=== PATIENT | female | born 1965 | race Caucasian/White ===

== ENCOUNTER 2018-07-17 07:52 | Inpatient (IN) | payer OTHER ==
[~2018-07-17 07:52] MED LIST: SUCCINYLCHOLINE CHLORIDE 100 MG/5 ML SYG IV
[2018-07-17 08:36] LABS: ADD MAN DIFF? NO
[2018-07-17 08:40] LABS: BASOPHIL # 0.1 10^3/ul (0.0-0.1); BASOPHILS % 1.2 % (0.0-2.0); EOSINOPHILS # 0.3 10^3/ul (0.0-0.5); EOSINOPHILS % 4.3 % (0.0-7.0); HEMATOCRIT 39.9 % (37.0-47.0); HEMOGLOBIN 12.9 g/dl (12.0-16.0); LYMPHOCYTES # 2.2 10^3/ul (0.8-2.9); LYMPHOCYTES % 37.8 % (15.0-51.0); MEAN CORPUSCULAR HEMOGLOBIN 29.4 pg (29.0-33.0); MEAN CORPUSCULAR HGB CONC 32.3 g/dl (32.0-37.0); MEAN CORPUSCULAR VOLUME 90.9 fl (82.0-101.0); MEAN PLATELET VOLUME 9.7 fl (7.4-10.4); MONOCYTE # 0.6 10^3/ul (0.3-0.9); MONOCYTES % 9.4 % (0.0-11.0); NEUTROPHIL # 2.8 10^3/ul (1.6-7.5); PLATELET COUNT 327 10^3/UL (140-415); RED BLOOD COUNT 4.39 10^6/ul (4.20-5.40); RED CELL DISTRIBUTION WIDTH 12.5 % (11.5-14.5)
[2018-07-17 08:40] LABS: WHITE BLOOD COUNT 5.9 10^3/ul (4.8-10.8)
[2018-07-17] MEDS: SOD CHLORIDE 0.9% 1,000 ML IV (08:48)
[2018-07-17] MEDS ORDERED: GLYCOPYRROLATE 0.4 MG INJ (08:56)
[2018-07-17] MEDS ORDERED: LIDOCAINE 2% (SDV) 5 ML INJ (08:56)
[2018-07-17] MEDS ORDERED: ROCURONIUM 50 MG INJ (08:56)
[2018-07-17] MEDS ORDERED: NEOSTIGMINE 3 MG/3 ML SYRINGE (08:56)
[2018-07-17] MEDS ORDERED: PROPOFOL 20 ML (08:56)
[2018-07-17] MEDS ORDERED: FENTAnyl 50 MCG/ML VIAL ×3 (08:57→12:49)
[2018-07-17] MEDS ORDERED: MIDAZOLAM 1 MG/ML 2 ML INJ (08:57)
[2018-07-17] MEDS: LORAZEPAM 2 MG INJ IV (08:58)
[2018-07-17] MEDS ORDERED: ONDANSETRON 4 MG INJ ×2 (08:58→12:53)
[2018-07-17] MEDS ORDERED: DEXAMETHASONE 4 MG/ML 5 ML INJ (08:58)
[2018-07-17 08:59] LABS: INR 0.81; PARTIAL THROMBOPLASTIN TIME 33.8 Sec (23.0-35.0); PROTIME 11.3 Sec (11.9-14.9); PT RATIO 0.9
[2018-07-17 09:04] LABS: ALANINE AMINOTRANSFERASE 18 IU/L (13-69); ALBUMIN 4.2 g/dl (3.3-4.9); ALKALINE PHOSPHATASE 69 IU/L (42-121); ANION GAP 11 (5-13); ASPARTATE AMINO TRANSFERASE 19 IU/L (15-46); BILIRUBIN,INDIRECT 0.1 mg/dl (0-1.1); BILIRUBIN,TOTAL 0.1 mg/dl (0.2-1.3); CALCIUM 9.6 mg/dl (8.4-10.2); CARBON DIOXIDE 25 mmol/L (21-31); CHLORIDE 107 mmol/L (97-110); CREATININE 0.74 mg/dl (0.44-1.00); Estimated GFR > 60 mL/min (>60); GLUCOSE 101 mg/dl (70-220); POTASSIUM 4.1 mmol/L (3.5-5.1); SODIUM 143 mmol/L (135-144); TOTAL PROTEIN 7.2 g/dl (6.1-8.1)
[2018-07-17 09:08] LABS: BLOOD UREA NITROGEN 23 mg/dl (7-20)
[2018-07-17] MEDS: CEFAZOLIN 1 GM/50 ML (PMX) 50 ML IVPB (10:08)
[2018-07-17] MEDS ORDERED: PHENYLephrine 10 MG INJ (11:15)
[2018-07-17] MEDS ORDERED: HYDROmorphONE 1 MG/5 ML IV SYRINGE IV ×4 (12:53→13:49)
[2018-07-17] MEDS ORDERED: MEPERIDINE 25 MG INJ (12:53)
[2018-07-17] MEDS ORDERED: HALOPERIDOL 5 MG INJ IV (13:00)
[2018-07-17] MEDS ORDERED: ALBUMIN HUMAN 5% 250 ML IV (13:00)
[2018-07-17] MEDS ORDERED: EPHEDrine SULFATE 50 MG/5 ML SYG IV (13:00)
[2018-07-17] MEDS ORDERED: morphine (1 MG/ML) 10ML SYRINGE IV ×2 (13:00)
[2018-07-17] MEDS ORDERED: FENTAnyl 50 MCG/ML VIAL IV ×2 (13:00)
[2018-07-17] MEDS ORDERED: MIDAZOLAM 1 MG/ML 2 ML INJ IV (13:00)
[2018-07-17] MEDS ORDERED: morphine 2 MG INJ IV (13:00)
[2018-07-17] MEDS ORDERED: RACEPINEPHRINE 2.25%(NEB) 0.5 ML AMP HHN (13:00)
[2018-07-17] MEDS ORDERED: ALBUTEROL 0.083% (NEB) 2.5 MG/3 ML AMP HHN (13:00)
[2018-07-17] MEDS ORDERED: PROCHLORPERAZINE 10 MG INJ IV (13:00)
[2018-07-17] MEDS ORDERED: hydrALAzine 20 MG INJ IV (13:00)
[2018-07-17] MEDS ORDERED: DIPHENHYDRAMINE 50 MG INJ (13:49)
[2018-07-17] MEDS: FENTAnyl 50 MCG/ML VIAL IV (14:14)
[2018-07-17] MEDS: MEPERIDINE 25 MG INJ IV (14:14)
[2018-07-17] MEDS: HYDROmorphONE 1 MG/5 ML IV SYRINGE IV (14:14)
[2018-07-17] MEDS: DIPHENHYDRAMINE 50 MG INJ IV (14:15)
[2018-07-17] MEDS: ONDANSETRON 4 MG INJ IV ×2 (14:15→18:59)
[2018-07-17] MEDS ORDERED: METOPROLOL 5 MG INJ IV (15:30)
[2018-07-17] MEDS: D5W-0.45 NACL + KCL 20 MEQ 1,000 ML IV ×2 (15:35→19:00)
[2018-07-17] MEDS: SOD CHLORIDE 0.9% 500 ML IV (18:16)
[2018-07-17] MEDS: LORAZEPAM 1 MG TAB PO (18:19)
[2018-07-17] MEDS: morphine SULFATE/PF (2 MG/2 ML) SYG IV ×2 (20:41→22:01)
[2018-07-17] MEDS: ACETAMINOPHEN 1000MG/100ML IV 100 ML IVPB (20:42)
[2018-07-18] MEDS: morphine SULFATE/PF (2 MG/2 ML) SYG IV ×7 (00:25→12:32)
[2018-07-18] MEDS: LORAZEPAM 1 MG TAB PO ×3 (02:57→19:49)
[2018-07-18] MEDS: ONDANSETRON 4 MG INJ IV ×3 (02:58→20:18)
[2018-07-18] MEDS: ACETAMINOPHEN 1000MG/100ML IV 100 ML IVPB (03:00)
[2018-07-18] MEDS: D5W-0.45 NACL + KCL 20 MEQ 1,000 ML IV ×3 (03:01→19:00)
[2018-07-18] MEDS: HYDROCODONE/APAP (10/325) TAB PO ×3 (14:00→22:28)
[2018-07-18 14:25] LABS: ABNORMAL IP MESSAGE 1; MEAN CORPUSCULAR HEMOGLOBIN 30.7 pg (29.0-33.0); MEAN CORPUSCULAR HGB CONC 32.1 g/dl (32.0-37.0); MEAN CORPUSCULAR VOLUME 95.5 fl (82.0-101.0); MEAN PLATELET VOLUME 10.1 fl (7.4-10.4); PLATELET COUNT 203 10^3/UL (140-415); RED BLOOD COUNT 1.99 10^6/ul (4.20-5.40); RED CELL DISTRIBUTION WIDTH 13.4 % (11.5-14.5)
[2018-07-18 14:25] LABS: WHITE BLOOD COUNT 7.5 10^3/ul (4.8-10.8)
[2018-07-18 14:39] LABS: HEMOGLOBIN 6.1 g/dl (12.0-16.0); POSITIVE DIFF @See below
[2018-07-18 14:43] LABS: ADD MAN DIFF? YES
[2018-07-18 14:46] LABS: INR 1.06; PROTIME 13.9 Sec (11.9-14.9); PT RATIO 1.1
[2018-07-18 14:47] LABS: PARTIAL THROMBOPLASTIN TIME 31.5 Sec (23.0-35.0)
[2018-07-18 15:41] LABS: ANISOCYTOSIS 2+ (0-0); BAND NEUTROPHILS #M 0.1 10^3/ul (0.0-0.6); BAND NEUTROPHILS % (M) 2 % (0-4); BASOPHILS % (M) 1 % (0-2); EOSINOPHILS % (M) 1 % (0-7); GIANT THROMBO% (M) 3 % (0-0); LYMPHOCYTES #M 2.1 10^3/ul (0.8-2.9); LYMPHOCYTES % (M) 28 % (15-51); MICROCYTOSIS 2+ (0-0); MONOCYTE #M 0.1 10^3/ul (0.3-0.9); MONOCYTES % (M) 2 % (0-11); PLATELET ESTIMATE NORMAL; SEGMENTED NEUTROPHILS (M) % 66 % (39-77); SMUDGE%M 5 % (0-0)
[2018-07-18] MEDS: morphine 4 MG/ML VIAL IV ×2 (16:31→20:19)
[2018-07-18] MEDS: ZOLPIDEM 5 MG TAB PO ×2 (20:19→22:34)
[2018-07-18] MEDS ORDERED: DIPHENHYDRAMINE 25 MG CAP (20:44)
[2018-07-18] MEDS: DIPHENHYDRAMINE 25 MG CAP PO (21:09)
[2018-07-19] MEDS: morphine 4 MG/ML VIAL IV ×5 (00:37→21:36)
[2018-07-19] MEDS: DIPHENHYDRAMINE 25 MG CAP PO ×2 (02:40→11:13)
[2018-07-19] MEDS: HYDROCODONE/APAP (10/325) TAB PO ×5 (02:40→23:36)
[2018-07-19] MEDS: D5W-0.45 NACL + KCL 20 MEQ 1,000 ML IV ×3 (03:00→17:18)
[2018-07-19] MEDS: LORAZEPAM 1 MG TAB PO ×3 (04:59→23:33)
[2018-07-19 07:39] LABS: ADD MAN DIFF? NO
[2018-07-19 07:44] LABS: BASOPHIL # 0.1 10^3/ul (0.0-0.1); BASOPHILS % 0.9 % (0.0-2.0); EOSINOPHILS # 0.3 10^3/ul (0.0-0.5); EOSINOPHILS % 3.5 % (0.0-7.0); HEMATOCRIT 25.6 % (37.0-47.0); HEMOGLOBIN 8.2 g/dl (12.0-16.0); LYMPHOCYTES # 2.8 10^3/ul (0.8-2.9); MEAN CORPUSCULAR HEMOGLOBIN 29.5 pg (29.0-33.0); MEAN CORPUSCULAR VOLUME 92.1 fl (82.0-101.0); MEAN PLATELET VOLUME 9.8 fl (7.4-10.4); MONOCYTE # 0.7 10^3/ul (0.3-0.9); MONOCYTES % 9.5 % (0.0-11.0); NEUTROPHIL # 3.8 10^3/ul (1.6-7.5); NEUTROPHILS % 49.6 % (39.0-77.0); PLATELET COUNT 177 10^3/UL (140-415); RED BLOOD COUNT 2.78 10^6/ul (4.20-5.40); RED CELL DISTRIBUTION WIDTH 14.3 % (11.5-14.5)
[2018-07-19 07:44] LABS: WHITE BLOOD COUNT 7.8 10^3/ul (4.8-10.8)
[2018-07-19 08:08] LABS: ANION GAP 4 (5-13); BLOOD UREA NITROGEN 14 mg/dl (7-20); CARBON DIOXIDE 24 mmol/L (21-31); CHLORIDE 107 mmol/L (97-110); CREATININE 0.72 mg/dl (0.44-1.00); Estimated GFR > 60 mL/min (>60); GLUCOSE 95 mg/dl (70-220); POTASSIUM 4.1 mmol/L (3.5-5.1); SODIUM 135 mmol/L (135-144)
[2018-07-19] MEDS: ONDANSETRON 4 MG INJ IV (11:18)
[2018-07-19 15:02] LABS: HEMATOCRIT 23.7 % (37.0-47.0); HEMOGLOBIN 7.7 g/dl (12.0-16.0)
[2018-07-19] MEDS: ZOLPIDEM 5 MG TAB PO ×2 (21:06→22:23)
[2018-07-19 21:39] LABS: IMMEDIATE SPIN CROSSMATCH 1 6
[2018-07-20] MEDS: DIPHENHYDRAMINE 25 MG CAP PO (01:37)
[2018-07-20] MEDS: morphine 4 MG/ML VIAL IV ×4 (02:03→21:31)
[2018-07-20] MEDS: D5W-0.45 NACL + KCL 20 MEQ 1,000 ML IV ×4 (03:00→19:31)
[2018-07-20] MEDS: LORAZEPAM 2 MG INJ IV ×2 (04:31→14:20)
[2018-07-20 05:10] LABS: ADD MAN DIFF? NO
[2018-07-20 05:16] LABS: WHITE BLOOD COUNT 8.4 10^3/ul (4.8-10.8)
[2018-07-20 05:16] LABS: BASOPHIL # 0.1 10^3/ul (0.0-0.1); BASOPHILS % 0.6 % (0.0-2.0); EOSINOPHILS # 0.4 10^3/ul (0.0-0.5); EOSINOPHILS % 4.9 % (0.0-7.0); HEMATOCRIT 27.2 % (37.0-47.0); HEMOGLOBIN 8.9 g/dl (12.0-16.0); LYMPHOCYTES # 2.7 10^3/ul (0.8-2.9); LYMPHOCYTES % 31.4 % (15.0-51.0); MEAN CORPUSCULAR HEMOGLOBIN 30.2 pg (29.0-33.0); MEAN CORPUSCULAR HGB CONC 32.7 g/dl (32.0-37.0); MEAN CORPUSCULAR VOLUME 92.2 fl (82.0-101.0); MEAN PLATELET VOLUME 9.9 fl (7.4-10.4); MONOCYTE # 0.7 10^3/ul (0.3-0.9); MONOCYTES % 8.2 % (0.0-11.0); NEUTROPHIL # 4.6 10^3/ul (1.6-7.5); NEUTROPHILS % 54.2 % (39.0-77.0); PLATELET COUNT 189 10^3/UL (140-415); RED BLOOD COUNT 2.95 10^6/ul (4.20-5.40); RED CELL DISTRIBUTION WIDTH 14.2 % (11.5-14.5)
[2018-07-20 05:53] LABS: ANION GAP 5 (5-13); BLOOD UREA NITROGEN 10 mg/dl (7-20); CALCIUM 8.4 mg/dl (8.4-10.2); CARBON DIOXIDE 26 mmol/L (21-31); CHLORIDE 104 mmol/L (97-110); CREATININE 0.67 mg/dl (0.44-1.00); Estimated GFR > 60 mL/min (>60); GLUCOSE 108 mg/dl (70-220); POTASSIUM 4.4 mmol/L (3.5-5.1); SODIUM 135 mmol/L (135-144)
[2018-07-20] MEDS ORDERED: FENTAnyl 50 MCG/ML VIAL (07:47)
[2018-07-20] MEDS ORDERED: MIDAZOLAM 1 MG/ML 2 ML INJ ×2 (07:47→08:02)
[2018-07-20] MEDS ORDERED: LIDOCAINE 2% (SDV) 5 ML INJ (07:48)
[2018-07-20] MEDS ORDERED: PROPOFOL 20 ML (07:48)
[2018-07-20] MEDS ORDERED: CEFAZOLIN 1 GM INJ (08:11)
[2018-07-20] MEDS ORDERED: PHENYLephrine (100 MCG/ML) 5ML SYG (08:11)
[2018-07-20] MEDS ORDERED: FAMOTIDINE 20 MG INJ (08:13)
[2018-07-20] MEDS ORDERED: ONDANSETRON 4 MG INJ (08:13)
[2018-07-20] MEDS ORDERED: DEXAMETHASONE 4 MG/ML 5 ML INJ (08:13)
[2018-07-20] MEDS ORDERED: FENTAnyl 50 MCG/ML VIAL IV (08:30)
[2018-07-20] MEDS ORDERED: PROCHLORPERAZINE 10 MG INJ IV (08:30)
[2018-07-20] MEDS ORDERED: MEPERIDINE 25 MG INJ IV (08:30)
[2018-07-20] MEDS ORDERED: ONDANSETRON 4 MG INJ IV (08:30)
[2018-07-20] MEDS ORDERED: DIPHENHYDRAMINE 50 MG INJ IV (08:30)
[2018-07-20] MEDS ORDERED: HYDROmorphONE 1 MG/5 ML IV SYRINGE IV ×3 (08:30)
[2018-07-20] MEDS ORDERED: HYDROmorphONE 2 MG/ML SYG (09:07)
[2018-07-20] MEDS: CEFAZOLIN 1 GM/50 ML (PMX) 50 ML IVPB ×2 (11:34→18:17)
[2018-07-20 12:58] LABS: HEMATOCRIT 28.6 % (37.0-47.0); HEMOGLOBIN 9.3 g/dl (12.0-16.0)
[2018-07-20 14:57] LABS: HEMATOCRIT 28.8 % (37.0-47.0); HEMOGLOBIN 9.4 g/dl (12.0-16.0)
[2018-07-20] MEDS: HYDROCODONE/APAP (10/325) TAB PO ×2 (15:26→19:31)
[2018-07-20] MEDS: DOCUSATE SODIUM 100 MG CAP PO (20:21)
[2018-07-20] MEDS: ZOLPIDEM 5 MG TAB PO ×2 (21:31→22:29)
[2018-07-20 23:19] LABS: HEMATOCRIT 26.7 % (37.0-47.0); HEMOGLOBIN 8.8 g/dl (12.0-16.0)
[2018-07-21] MEDS: CEFAZOLIN 1 GM/50 ML (PMX) 50 ML IVPB ×2 (00:01→05:21)
[2018-07-21] MEDS: LORAZEPAM 1 MG TAB PO ×2 (00:01→08:33)
[2018-07-21] MEDS: morphine 4 MG/ML VIAL IV ×5 (05:22→23:01)
[2018-07-21] MEDS: D5W-0.45 NACL + KCL 20 MEQ 1,000 ML IV ×4 (05:22→19:00)
[2018-07-21] MEDS: ONDANSETRON 4 MG INJ IV (06:02)
[2018-07-21 06:46] LABS: HEMATOCRIT 25.5 % (37.0-47.0); HEMOGLOBIN 8.3 g/dl (12.0-16.0)
[2018-07-21] MEDS: HYDROCODONE/APAP (10/325) TAB PO ×2 (08:02→20:52)
[2018-07-21] MEDS: DOCUSATE SODIUM 100 MG CAP PO ×2 (08:02→20:51)
[2018-07-21 09:32] LABS: ADD MAN DIFF? NO
[2018-07-21 09:34] LABS: BASOPHILS % 0.4 % (0.0-2.0); EOSINOPHILS # 0.3 10^3/ul (0.0-0.5); EOSINOPHILS % 3.4 % (0.0-7.0); HEMATOCRIT 25.5 % (37.0-47.0); HEMOGLOBIN 8.4 g/dl (12.0-16.0); LYMPHOCYTES # 1.7 10^3/ul (0.8-2.9); MEAN CORPUSCULAR HEMOGLOBIN 30.8 pg (29.0-33.0); MEAN CORPUSCULAR HGB CONC 32.9 g/dl (32.0-37.0); MEAN CORPUSCULAR VOLUME 93.4 fl (82.0-101.0); MEAN PLATELET VOLUME 10.3 fl (7.4-10.4); MONOCYTE # 0.8 10^3/ul (0.3-0.9); MONOCYTES % 9.8 % (0.0-11.0); NEUTROPHIL # 5.6 10^3/ul (1.6-7.5); NEUTROPHILS % 65.7 % (39.0-77.0); PLATELET COUNT 208 10^3/UL (140-415); RED BLOOD COUNT 2.73 10^6/ul (4.20-5.40); RED CELL DISTRIBUTION WIDTH 14.1 % (11.5-14.5)
[2018-07-21 09:34] LABS: WHITE BLOOD COUNT 8.6 10^3/ul (4.8-10.8)
[2018-07-21] MEDS: MAGNESIUM HYDROXIDE 30ML CUP PO (15:46)
[2018-07-21] MEDS ORDERED: AL HYDROX/MG HYDROX/SIMETH 30 ML CUP PO (18:00)
[2018-07-21 19:11] LABS: HEMATOCRIT 28.6 % (37.0-47.0); HEMOGLOBIN 9.3 g/dl (12.0-16.0)
[2018-07-22] MEDS: ONDANSETRON 4 MG INJ IV ×2 (00:40→13:43)
[2018-07-22] MEDS: D5W-0.45 NACL + KCL 20 MEQ 1,000 ML IV ×5 (00:41→19:00)
[2018-07-22] MEDS: BISACODYL (EC) 5 MG TAB PO (01:06)
[2018-07-22] MEDS: morphine 4 MG/ML VIAL IV ×5 (02:55→21:01)
[2018-07-22 07:01] LABS: ADD MAN DIFF? NO
[2018-07-22 07:12] LABS: WHITE BLOOD COUNT 6.4 10^3/ul (4.8-10.8)
[2018-07-22 07:12] LABS: BASOPHIL # 0.1 10^3/ul (0.0-0.1); BASOPHILS % 0.8 % (0.0-2.0); EOSINOPHILS # 0.5 10^3/ul (0.0-0.5); EOSINOPHILS % 7.1 % (0.0-7.0); HEMATOCRIT 27.7 % (37.0-47.0); HEMOGLOBIN 8.9 g/dl (12.0-16.0); LYMPHOCYTES # 2.2 10^3/ul (0.8-2.9); LYMPHOCYTES % 34.1 % (15.0-51.0); MEAN CORPUSCULAR HEMOGLOBIN 30.9 pg (29.0-33.0); MEAN CORPUSCULAR HGB CONC 32.1 g/dl (32.0-37.0); MEAN CORPUSCULAR VOLUME 96.2 fl (82.0-101.0); MEAN PLATELET VOLUME 9.6 fl (7.4-10.4); MONOCYTE # 0.6 10^3/ul (0.3-0.9); MONOCYTES % 9.1 % (0.0-11.0); NEUTROPHIL # 3.1 10^3/ul (1.6-7.5); NEUTROPHILS % 48.1 % (39.0-77.0); PLATELET COUNT 224 10^3/UL (140-415); RED BLOOD COUNT 2.88 10^6/ul (4.20-5.40); RED CELL DISTRIBUTION WIDTH 14.7 % (11.5-14.5)
[2018-07-22] MEDS: DOCUSATE SODIUM 100 MG CAP PO ×2 (08:01→21:06)
[2018-07-22] MEDS: LORAZEPAM 1 MG TAB PO (08:01)
[2018-07-22] MEDS: HYDROCODONE/APAP (10/325) TAB PO (13:40)
[2018-07-22] MEDS ORDERED: ACETAMINOPHEN 500 MG TAB PO (14:30)
[2018-07-22] MEDS: KETOROLAC 30 MG INJ IV ×3 (15:15→23:06)
[2018-07-22] MEDS: MINERAL OIL 30ML CUP PO (17:58)
[2018-07-22 19:37] LABS: HEMATOCRIT 30.1 % (37.0-47.0); HEMOGLOBIN 9.6 g/dl (12.0-16.0)
[2018-07-22] MEDS: MAGNESIUM HYDROXIDE 30ML CUP PO (21:00)
[2018-07-23] MEDS: MINERAL OIL 30ML CUP PO ×4 (01:41→13:19)
[2018-07-23] MEDS: morphine 4 MG/ML VIAL IV ×4 (01:50→15:05)
[2018-07-23] MEDS: D5W-0.45 NACL + KCL 20 MEQ 1,000 ML IV ×3 (01:53→10:21)
[2018-07-23] MEDS: KETOROLAC 30 MG INJ IV ×3 (02:30→13:52)
[2018-07-23] MEDS: LORAZEPAM 1 MG TAB PO (05:06)
[2018-07-23 06:00] LABS: ADD MAN DIFF? NO
[2018-07-23 06:16] LABS: WHITE BLOOD COUNT 7.3 10^3/ul (4.8-10.8)
[2018-07-23 06:16] LABS: BASOPHILS % 0.4 % (0.0-2.0); EOSINOPHILS # 0.5 10^3/ul (0.0-0.5); EOSINOPHILS % 7.3 % (0.0-7.0); HEMATOCRIT 29.4 % (37.0-47.0); HEMOGLOBIN 9.2 g/dl (12.0-16.0); LYMPHOCYTES % 27.8 % (15.0-51.0); MEAN CORPUSCULAR HEMOGLOBIN 29.9 pg (29.0-33.0); MEAN CORPUSCULAR HGB CONC 31.3 g/dl (32.0-37.0); MEAN CORPUSCULAR VOLUME 95.5 fl (82.0-101.0); MEAN PLATELET VOLUME 9.8 fl (7.4-10.4); MONOCYTE # 0.7 10^3/ul (0.3-0.9); MONOCYTES % 9.7 % (0.0-11.0); NEUTROPHIL # 3.9 10^3/ul (1.6-7.5); NEUTROPHILS % 53.3 % (39.0-77.0); PLATELET COUNT 246 10^3/UL (140-415); RED BLOOD COUNT 3.08 10^6/ul (4.20-5.40); RED CELL DISTRIBUTION WIDTH 14.6 % (11.5-14.5)
[2018-07-23 06:21] LABS: ANION GAP 3 (5-13); BLOOD UREA NITROGEN 12 mg/dl (7-20); CALCIUM 8.4 mg/dl (8.4-10.2); CARBON DIOXIDE 30 mmol/L (21-31); CHLORIDE 105 mmol/L (97-110); CREATININE 0.61 mg/dl (0.44-1.00); Estimated GFR > 60 mL/min (>60); GLUCOSE 109 mg/dl (70-220); POTASSIUM 4.7 mmol/L (3.5-5.1); SODIUM 138 mmol/L (135-144)
[2018-07-23] MEDS: DOCUSATE SODIUM 100 MG CAP PO (10:21)
[2018-07-23] MEDS: HEPARIN (100 UNITS/ML) 5 ML SYG CATHETER (16:18)
== END 2018-07-23 16:40 | disposition home or self-care (01) | DRG 580 ==
LOC: REC 07:52 → 2NE 07-18 15:50
PROC: 0HTV0ZZ Resection of Bilateral Breast, Open Approach (ICD-10-PCS; principal; 2018-07-17 10:01)
PROC: 07B60ZX Excision of Left Axillary Lymphatic, Open Approach, Diagnostic (ICD-10-PCS; 2018-07-17 10:01)
PROC: 0HCU0ZZ Extirpation of Matter from Left Breast, Open Approach (ICD-10-PCS; 2018-07-17 10:01)
PROC: 30233N1 Transfusion of Nonautologous Red Blood Cells into Peripheral Vein, Percutaneous Approach (ICD-10-PCS; 2018-07-17 10:01)
DX: C50.412 Malignant neoplasm of upper-outer quadrant of left female breast (principal); C77.3 Secondary and unspecified malignant neoplasm of axilla and upper limb lymph nodes; D62 Acute posthemorrhagic anemia; M96.841 Postprocedural hematoma of a musculoskeletal structure following other procedure; M96.831 Postprocedural hemorrhage of a musculoskeletal structure following other procedure; F41.9 Anxiety disorder, unspecified; F32.9 Major depressive disorder, single episode, unspecified; R51 Headache; Z17.1 Estrogen receptor negative status [ER-]; C50.312 Malignant neoplasm of lower-inner quadrant of left female breast; Z92.21 Personal history of antineoplastic chemotherapy; Y83.8 Other surgical procedures as the cause of abnormal reaction of the patient, or of later complication, without mention of misadventure at the time of the procedure; Y92.230 Patient room in hospital as the place of occurrence of the external cause
CPT/HCPCS: 36430; 71045; 80048; 80053; 84703; 85014; 85018; 85025; 85610; 85730; 86644; 86850; 86900; 86901; 86920; 87070; 87075; 88307; 93005

== ENCOUNTER 2018-10-06 14:01 | Emergency (ER) | payer OTHER ==
[2018-10-06] MEDS: SOD CHLORIDE 0.9% 1,000 ML IV (14:50)
[2018-10-06 14:55] LABS: ADD MAN DIFF? NO
[2018-10-06 15:06] LABS: ADD UMIC YES; UR ASCORBIC ACID NEGATIVE (NEGATIVE); UR BILIRUBIN (Dip) NEGATIVE (NEGATIVE); UR BLOOD (Dip) 1+ mg/dL (NEGATIVE); UR CLARITY CLEAR (CLEAR); UR COLOR YELLOW (YELLOW); UR GLUCOSE (Dip) NEGATIVE (NEGATIVE); UR KETONES (Dip) TRACE mg/dL (NEGATIVE); UR LEUKOCYTE ESTERASE (Dip) NEGATIVE Leu/ul (NEGATIVE); UR NITRITE (Dip) NEGATIVE (NEGATIVE); UR RBC 3 /HPF (0-5); UR SPECIFIC GRAVITY (Dip) 1.025 (1.003-1.030); UR TOTAL PROTEIN (Dip) NEGATIVE (NEGATIVE); UR UROBILINOGEN (Dip) NEGATIVE (NEGATIVE); UR WBC 2 /HPF (0-5)
[2018-10-06 15:23] LABS: ALANINE AMINOTRANSFERASE 17 IU/L (13-69); ALBUMIN 4.1 g/dl (3.3-4.9); ALBUMIN/GLOBULIN RATIO 1.46; ALKALINE PHOSPHATASE 70 IU/L (42-121); ANION GAP 7 (5-13); ASPARTATE AMINO TRANSFERASE 18 IU/L (15-46); BILIRUBIN,INDIRECT 0.3 mg/dl (0-1.1); BILIRUBIN,TOTAL 0.3 mg/dl (0.2-1.3); BLOOD UREA NITROGEN 21 mg/dl (7-20); CALCIUM 9.6 mg/dl (8.4-10.2); CARBON DIOXIDE 25 mmol/L (21-31); CHLORIDE 108 mmol/L (97-110); CREATININE 0.65 mg/dl (0.44-1.00); Estimated GFR > 60 mL/min (>60); GLUCOSE 86 mg/dl (70-220); LIPASE 78 U/L (23-300); POTASSIUM 3.7 mmol/L (3.5-5.1); SODIUM 140 mmol/L (135-144); TOTAL PROTEIN 6.9 g/dl (6.1-8.1)
[2018-10-06 15:37] LABS: WHITE BLOOD COUNT 5.4 10^3/ul (4.8-10.8)
[2018-10-06 15:37] LABS: BASOPHIL # 0.1 10^3/ul (0.0-0.1); BASOPHILS % 1.1 % (0.0-2.0); EOSINOPHILS # 0.2 10^3/ul (0.0-0.5); EOSINOPHILS % 3.9 % (0.0-7.0); HEMATOCRIT 38.4 % (37.0-47.0); HEMOGLOBIN 12.5 g/dl (12.0-16.0); LYMPHOCYTES # 2.3 10^3/ul (0.8-2.9); LYMPHOCYTES % 42.5 % (15.0-51.0); MEAN CORPUSCULAR HEMOGLOBIN 29.2 pg (29.0-33.0); MEAN CORPUSCULAR HGB CONC 32.6 g/dl (32.0-37.0); MEAN CORPUSCULAR VOLUME 89.7 fl (82.0-101.0); MONOCYTE # 0.5 10^3/ul (0.3-0.9); NEUTROPHIL # 2.4 10^3/ul (1.6-7.5); NEUTROPHILS % 43.3 % (39.0-77.0); PLATELET COUNT 314 10^3/UL (140-415); RED BLOOD COUNT 4.28 10^6/ul (4.20-5.40); RED CELL DISTRIBUTION WIDTH 12.8 % (11.5-14.5)
[2018-10-06] MEDS: KETOROLAC 30 MG INJ IV (16:13)
[2018-10-06] MEDS: HEPARIN (100 UNITS/ML) 5 ML SYG CATHETER (17:12)
== END 2018-10-06 17:30 | disposition home or self-care (01) ==
LOC: E/R 14:01
DX: R30.0 Dysuria (principal); R10.84 Generalized abdominal pain; Z85.3 Personal history of malignant neoplasm of breast
CPT/HCPCS: 36415; 74176; 80053; 81001; 83690; 85025; 96361; 96374; 96375; 99285-25

== ENCOUNTER → 2018-11-21 | Outpatient (CLI) | payer OTHER | END | disposition home or self-care (01) | LOC: EKG 09:09 | DX: C50.112 Malignant neoplasm of central portion of left female breast (principal); Z17.1 Estrogen receptor negative status [ER-] | CPT/HCPCS: 93306 ==

== ENCOUNTER → 2019-02-26 | Outpatient (CLI) | payer OTHER | END | disposition home or self-care (01) | LOC: EKG 10:02 | DX: A04.72 Enterocolitis due to Clostridium difficile, not specified as recurrent (principal); R53.0 Neoplastic (malignant) related fatigue; M79.10 Myalgia, unspecified site; F32.9 Major depressive disorder, single episode, unspecified; C50.112 Malignant neoplasm of central portion of left female breast; Z17.1 Estrogen receptor negative status [ER-]; Z86.19 Personal history of other infectious and parasitic diseases; Z51.11 Encounter for antineoplastic chemotherapy | CPT/HCPCS: 93306 ==

== ENCOUNTER → 2019-03-21 | Emergency (ER) | payer OTHER ==
[2019-03-21 13:31] LABS: ADD MAN DIFF? NO
[2019-03-21 13:35] LABS: BASOPHILS % 1.3 % (0.0-2.0); EOSINOPHILS # 0.2 10^3/ul (0.0-0.5); EOSINOPHILS % 5.7 % (0.0-7.0); HEMATOCRIT 38.9 % (37.0-47.0); HEMOGLOBIN 12.5 g/dl (12.0-16.0); LYMPHOCYTES # 0.9 10^3/ul (0.8-2.9); LYMPHOCYTES % 29.9 % (15.0-51.0); MEAN CORPUSCULAR HEMOGLOBIN 31.5 pg (29.0-33.0); MEAN CORPUSCULAR HGB CONC 32.1 g/dl (32.0-37.0); MEAN PLATELET VOLUME 9.3 fl (7.4-10.4); MONOCYTE # 0.3 10^3/ul (0.3-0.9); MONOCYTES % 8.6 % (0.0-11.0); NEUTROPHIL # 1.7 10^3/ul (1.6-7.5); NEUTROPHILS % 54.2 % (39.0-77.0); PLATELET COUNT 262 10^3/UL (140-415); RED BLOOD COUNT 3.97 10^6/ul (4.20-5.40); RED CELL DISTRIBUTION WIDTH 12.7 % (11.5-14.5)
[2019-03-21 13:35] LABS: WHITE BLOOD COUNT 3.1 10^3/ul (4.8-10.8)
[2019-03-21 13:54] LABS: ALANINE AMINOTRANSFERASE 19 IU/L (13-69); ALBUMIN 3.7 g/dl (3.3-4.9); ALBUMIN/GLOBULIN RATIO 1.19; ALKALINE PHOSPHATASE 53 IU/L (42-121); ANION GAP 7 (5-13); ASPARTATE AMINO TRANSFERASE 19 IU/L (15-46); BILIRUBIN,INDIRECT 0.4 mg/dl (0-1.1); BILIRUBIN,TOTAL 0.4 mg/dl (0.2-1.3); BLOOD UREA NITROGEN 15 mg/dl (7-20); CALCIUM 8.6 mg/dl (8.4-10.2); CARBON DIOXIDE 27 mmol/L (21-31); CHLORIDE 108 mmol/L (97-110); CREATININE 0.66 mg/dl (0.44-1.00); Estimated GFR > 60 mL/min (>60); GLUCOSE 112 mg/dl (70-220); POTASSIUM 3.6 mmol/L (3.5-5.1); SODIUM 142 mmol/L (135-144); TOTAL PROTEIN 6.8 g/dl (6.1-8.1)
== END | disposition home or self-care (01) ==
LOC: FTE 11:08
DX: R31.9 Hematuria, unspecified (principal); Z85.3 Personal history of malignant neoplasm of breast; Z85.51 Personal history of malignant neoplasm of bladder
CPT/HCPCS: 74176; 80053; 85025; 99284-25